=== PATIENT | male | born 1995 | race Asian ===

== ENCOUNTER → 2024-06-29 10:07 | Outpatient (BNVA) | payer SELFPAY | DX: Z02.83 Encounter for blood-alcohol and blood-drug test (principal) ==

== ENCOUNTER → 2024-10-14 14:34 | Outpatient (REF) | payer OTHER, SELFPAY ==
--- NOTE | 2024-10-14 14:41 | ECG_ITS ---
Test Reason : [id number] Blood Pressure : / mmHG Vent. Rate : 095 BPM Atrial Rate : 095 BPM P-R Int : 140 ms QRS Dur : 098 ms QT Int : 352 ms P-R-T Axes : 066 085 046 degrees QTc Int : 442 ms Normal sinus rhythm Normal ECG No previous ECGs available Referred By: Yareli Castillo Electronically Signed By:KATHY ESPARZA MD
== END ==
LOC: HO.CARD 14:34
PROVIDERS: Visit Provider Registered Nurse
DX: Z79.899 Other long term (current) drug therapy (principal)
CPT/HCPCS: 93005

== ENCOUNTER → 2024-10-14 14:41 | Outpatient (BNV) | payer OTHER, SELFPAY | PROVIDERS: Visit Provider Internal Medicine Cardiovascular Disease | DX: Z79.899 Other long term (current) drug therapy (principal) | CPT/HCPCS: 93010 ==